=== PATIENT | female | born 1970 | race Caucasian/White ===

== ENCOUNTER 2017-05-28 19:10 | Emergency (ER) | payer OTHER ==
[2017-05-28 19:17] VITALS: TEMP 98.4; O2SAT 98
--- NOTE | 2017-05-28 19:34 | EDPHY ---
H & P Stated Complaint: "DKA", nausea, dizzy, muscle aches Time Seen by Provider: 05/28/17 19:18 HPI/ROS: Chief Complaint: Possible DKA HPI: 47-year-old type 1 diabetic on an insulin pump in usually on a continuous glucose monitor is presenting with persistently high blood sugars today and is concerned that she might be in DKA. Patient states that she woke up this morning with a blood sugar of about 500. She has been attempting to give herself correction doses during the course of the day but her blood sugars have not been coming down. She did change her infusion set approximately 2 hr ago. She gave herself a repeat correction at that time. Blood sugar dropped from 508 2 455 from 6-630. Last time she checked her blood sugar was 1 hr ago. She has had some mild nausea and body aches. No vomiting. No fevers or chills. No cough. She did not notice any significant abnormalities with her infusion set including kinks or air bubbles. She did state that this had is relatively new as she put it in approximately 30 hr ago. She has been on the insulin pump for the last 7 years and was diagnosed with type 1 diabetes in 2000. Last A1c was 6.7. ROS: 10 point Review of Systems is negative except as noted in the HPI. PMH: Type 1 diabetes Social History: No smoking, no alcohol, no recreational drug use Family History: non-contributory Physical Exam: Gen: Awake, Alert, No Distress HEENT: Nose: no rhinorrhea Eyes: PERRLA, EOMI Mouth: Moist mucosa Neck: Supple, no JVD Chest: nontender, lungs clear to auscultation Heart: S1, S2 normal, no murmur Abd: Soft, non-tender, no guarding, patient has a insulin infusion site in her right abdomen that. There is no erythema or tenderness. Back: no CVA tenderness, no midline tenderness Ext: no edema, non-tender Skin: no rash Neuro: CN II-XII intact, Sensation grossly intact, Strength 5/5 in bilateral upper and lower extremities - Personal History LMP (Females 10-55): Now Current Tetanus/Diphtheria Vaccine: Yes Current Tetanus Diphtheria and Acellular Pertussis (TDAP): Yes - Medical/Surgical History Hx Asthma: No Hx Chronic Respiratory Disease: No Hx Diabetes: Yes Hx Cardiac Disease: No Hx Renal Disease: No Hx Cirrhosis: No Hx Alcoholism: No Hx HIV/AIDS: No Hx Splenectomy or Spleen Trauma: No Other PMH: "guilet-barre disease" - Social History Smoking Status: Never smoked Constitutional: Initial Vital Signs Temperature (C) 36.9 C 05/28/17 19:13 Heart Rate 120 H 05/28/17 19:13 Respiratory Rate 20 05/28/17 19:13 Blood Pressure 151/94 H 05/28/17 19:13 O2 Sat (%) 98 05/28/17 19:13 O2 Delivery Mode Room Air Allergies/Adverse Reactions: No Known Allergies Allergy (Unverified 05/28/17 19:17) Home Medications: Medication Instructions Recorded Metformin HCl [Fortamet 1000 mg] 05/28/17 Medical Decision Making ED Course/Re-evaluation: 47-year-old hyperglycemia secondary to likely failure from the infusion site of her insulin pump. She has a very mild acidosis here. Will give her a L of fluid and reassess. She is not like she is in fluid DKA at this time. Repeat blood sugar here is 300. Will reassess after hydration. Acidosis has resolved. Bicarb is now 18. Patient's tolerating fluid improved. Will discharge with follow-up with her ingredient mixer. - Data Points Laboratory Results: Laboratory Results 05/28/17 19:40 05/28/17 19:40 05/28/17 05/28/17 05/28/17 20:35 19:52 19:40 WBC 11.26 10^3/uL H 10^3/uL (3.80-9.50) RBC 4.68 10^6/uL 10^6/uL (4.18-5.33) Hgb 15.0 g/dL g/dL (12.6-16.3) POC Hgb Hct 42.1 % % (38.0-47.0) POC Hct MCV 90.0 fL fL (81.5-99.8) MCH 32.1 pg pg (27.9-34.1) MCHC 35.6 g/dL g/dL (32.4-36.7) RDW 12.5 % % (11.5-15.2) Plt Count 290 10^3/uL 10^3/uL (150-400) MPV 10.6 fL fL (8.7-11.7) Neut % (Auto) 83.2 % H % (39.3-74.2) Lymph % (Auto) 9.8 % L % (15.0-45.0) [place] % (Auto) 5.7 % % (4.5-13.0) Eos % (Auto) 0.1 % L % (0.6-7.6) Baso % (Auto) 0.7 % % (0.3-1.7) Nucleat RBC Rel Count 0.0 % % (0.0-0.2) Absolute Neuts (auto) 9.37 10^3/uL H 10^3/uL (1.70-6.50) Absolute Lymphs (auto) 1.10 10^3/uL 10^3/uL (1.00-3.00) Absolute Monos (auto) 0.64 10^3/uL 10^3/uL (0.30-0.80) Absolute Eos (auto) 0.01 10^3/uL L 10^3/uL (0.03-0.40) Absolute Basos (auto) 0.08 10^3/uL 10^3/uL (0.02-0.10) Absolute Nucleated RBC 0.00 10^3/uL 10^3/uL (0-0.01) Immature Gran % 0.5 % % (0.0-1.1) Immature Gran # 0.06 10^3/uL 10^3/uL (0.00-0.10) Puncture Site NONE GIVEN NONE GIVEN Patient Temperature 37.0 DEGREES DEGREES 37.0 DEGREES DEGREES VBG pH 7.31 7.29 L (7.31-7.42) (7.31-7.42) VBG HCO3 18 mEQ/L L mEQ/L 16 mEQ/L L mEQ/L (22-26) (22-26) VBG Total CO2 19 mEq/L L mEq/L 17 mEq/L L mEq/L (23-27) (23-27) VBG O2 Saturation 68 % % 69 % % (65-75) (65-75) VBG Base Excess -7.1 mEq/L L mEq/L -9.3 mEq/L L mEq/L (-2.5-2.5) (-2.5-2.5) Mixed VBG pCO2 38 mmHg L mmHg 35 mmHg L mmHg (40-44) (40-44) Mixed VBG pO2 39 mmHg mmHg 41 mmHg H mmHg (35-40) (35-40) POC Sodium Sodium POC Potassium Potassium POC Chloride Chloride Carbon Dioxide Anion Gap POC BUN BUN Creatinine POC Creatinine Estimated GFR Glucose POC Glucose Calcium 05/28/17 05/28/17 19:40 19:31 WBC RBC Hgb POC Hgb 14.6 gm/dL gm/dL (12.6-16.3) Hct POC Hct 43 % % (38-47) MCV MCH MCHC RDW Plt Count MPV Neut % (Auto) Lymph % (Auto) [place] % (Auto) Eos % (Auto) Baso % (Auto) Nucleat RBC Rel Count Absolute Neuts (auto) Absolute Lymphs (auto) Absolute Monos (auto) Absolute Eos (auto) Absolute Basos (auto) Absolute Nucleated RBC Immature Gran % Immature Gran # Puncture Site Patient Temperature VBG pH VBG HCO3 VBG Total CO2 VBG O2 Saturation VBG Base Excess Mixed VBG pCO2 Mixed VBG pO2 POC Sodium 134 mEq/L mEq/L (134-144) Sodium 132 mEq/L L mEq/L (134-144) POC Potassium 3.8 mEq/L mEq/L (3.3-5.0) Potassium 4.0 mEq/L mEq/L (3.5-5.2) POC Chloride 98 mEq/L mEq/L (97-110) Chloride 96 mEq/L L mEq/L (97-110) Carbon Dioxide 16 mEq/l L mEq/l (22-31) Anion Gap 20 mEq/L H mEq/L (8-16) POC BUN 18 mg/dL mg/dL (7-23) BUN 17 mg/dL mg/dL (7-23) Creatinine 0.8 mg/dL mg/dL (0.6-1.0) POC Creatinine 0.8 mg/dL mg/dL (0.6-1.0) Estimated GFR > 60 Glucose 290 mg/dL H mg/dL (70-100) POC Glucose 302 mg/dL H mg/dL (70-100) Calcium 9.5 mg/dL mg/dL (8.5-10.4) Medications Given: Discontinued Medications Sodium Chloride (Ns) 1,000 mls @ 0 mls/hr IV ONCE ONE; As Directed PRN Reason: Protocol Stop: 05/28/17 20:17 Last Admin: 05/28/17 20:22 Dose: 1,000 mls Point of Care Test Results: 05/28/17 19:31 POC Sodium 134 POC Potassium 3.8 POC Chloride 98 POC BUN 18 POC Creatinine 0.8 POC Glucose 302 H Departure - Departure Disposition: Home, Routine, Self-Care Clinical Impression: Hyperglycemia, DKA (diabetic ketoacidoses) Condition: Good Instructions: Diabetic Hyperglycemia (ED) Additional Instructions: Follow up with her ingredient mixer in 5-6 days for further evaluation. Return emergency department for uncontrolled blood sugars, nausea, vomiting, fevers, chills, or any other concerns. Referrals: NONE *PRIMARY CARE P,. [Unknown] - As per Instructions
[2017-05-28 19:47] LABS: PLATELET COUNT 290 10^3/uL (150-400)
[2017-05-28] MEDS ORDERED: NS 1,000 ML IV ONE (20:16)
[2017-05-28 21:53] VITALS: BP 131/85; PULSE 93; RESP 16
== END 2017-05-28 22:22 | disposition home or self-care (01) ==
DX: E10.10 Type 1 diabetes mellitus with ketoacidosis without coma (principal); E86.9 Volume depletion, unspecified
CPT/HCPCS: 82947-QW

== ENCOUNTER → 2017-06-24 | Outpatient (CLI) | payer OTHER | LOC: CIMAGING 13:38 | PROVIDERS: ATTEND Internal Medicine Endocrinology, Diabetes & Metabolism | DX: Z12.31 Encounter for screening mammogram for malignant neoplasm of breast (principal) ==

== ENCOUNTER → 2018-06-25 | Outpatient (CLI) | payer OTHER | LOC: CIMAGING 12:20 | PROVIDERS: ATTEND Internal Medicine Endocrinology, Diabetes & Metabolism | DX: Z12.31 Encounter for screening mammogram for malignant neoplasm of breast (principal) ==

== ENCOUNTER → 2018-09-29 | Outpatient (CLI) | payer OTHER | LOC: FIMAGING 13:19 | PROVIDERS: ATTEND Family Medicine | DX: R30.0 Dysuria (principal); R10.9 Unspecified abdominal pain; R82.90 Unspecified abnormal findings in urine; Z87.898 Personal history of other specified conditions ==

== ENCOUNTER 2018-10-12 13:45 | Observation (INO) | payer OTHER ==
[2018-10-12] MEDS ORDERED: NS 500 ML IV ONE (13:53)
[2018-10-12] MEDS ORDERED: ONDANSETRON 4 MG/2 ML VIAL IVP ONE (13:53)
--- NOTE | 2018-10-12 14:17 | EDPHY ---
H & P Smoking Status: Never smoked Time Seen by Provider: 10/12/18 13:53 HPI/ROS: HPI Abdominal pain. 48-year-old female by private vehicle. 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 She presents to the emergency department with complaint of right-sided mid to lower abdominal pain which she describes as aching and cramping since 1-2 a.m. This morning. She reports that she has had several bowel movements since this time with no relief. She describes normal stool. No bloody or melenic stool and no diarrhea. She has also been passing gas without relief. Her last meal was at 9:00 a.m. and this was some cereal. Prior abdominal surgical history includes cholecystectomy. She also recently finished a course of Keflex for treatment of urinary tract infection. Last menstrual. Was at the end of August. She has had nausea but no vomiting. ROS: Constitutional: No fever, no chills. No weakness. Eyes: No discharge. No changes in vision. ENT: No sore throat. No nasal congestion or rhinorrhea. Respiratory: No cough. No shortness of breath. Cardiac: No chest pain, no palpitations. Gastrointestinal: As above, no vomiting, no diarrhea. Genitourinary: No hematuria. No dysuria or increased frequency with urination. Musculoskeletal: No back pain. No neck pain. No myalgias or arthralgias. Skin: No rashes. Neurological: No headache. No focal weakness or altered sensation. Past medical history: As above, Guillian Aledo syndrome, type 1 diabetes, cholecystectomy, C-sections, urinary tract infections. Her primary care physician is Dr. Encarnacion. 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 Physical Exam: General Appearance: Alert, no distress. This patient is responding to questions appropriately and in full sentences. This patient appears well- hydrated and well-nourished. Eyes: Pupils equal and round no pallor or injection. No lid edema, erythema or injection. Respiratory: There are no retractions, lungs are clear to auscultation with good air movement bilaterally. Cardiovascular: Regular rate and rhythm. No murmur. Gastrointestinal: With mild and vague right lower quadrant and right mid lateral abdominal tenderness on palpation, no masses, bowel sounds normal. No focal tenderness at McBurney's point. No Patel sign. Neurological: Motor sensory function is grossly intact. Cranial nerves are normal. Gait is normal. Skin: Warm and dry, no rashes. Musculoskeletal: Neck is supple and nontender. Extremities are symmetrical. All joints range without pain or impingement. Psychiatric: No agitation. No depression. Database: EKG: Imaging: CT abdomen and pelvis with IV contrast: Procedures: Emergency department course: Triage vital signs reviewed. She is mildly hypertensive. Vital signs are otherwise normal. She is afebrile. IV was placed. She was started on IV normal saline with 500 cc to be given over the next hour. She will be given 4 mg of IV Zofran for nausea. She declines pain medication at this time. CT imaging will be obtained to evaluate for appendicitis. Patient endorses workup. 3:00 p.m., blood work and urinalysis reviewed, patient's care turned over to Dr. Ronnell Rodríguez. CT abdomen and pelvis pending. Differential Diagnosis: The differential diagnosis on this patient includes but is not limited to appendicitis, ureterolithiasis. Ectopic , bowel obstruction/volvulus, cholecystitis, pyelonephritis unlikely. This represents a partial list of diagnoses considered. These considerations are based on history, physical exam , past history, reassessment and diagnostic testing. (Suresh Patton) Constitutional: Initial Vital Signs Temperature (C) 37.0 C 10/12/18 13:52 Heart Rate 90 10/12/18 13:52 Respiratory Rate 18 10/12/18 13:52 Blood Pressure 155/106 H 10/12/18 13:52 O2 Sat (%) 98 10/12/18 13:52 O2 Delivery Mode Room Air Allergies/Adverse Reactions: lisinopril Allergy (Verified 10/12/18 18:56) Home Medications: Medication Instructions Recorded Insulin Aspart [novoLOG] 0 unit SC AD 10/12/18 Insulin Pump, Patient Own 1 ea MISC AD 10/12/18 Insulin Regular, Human [Afrezza] 8 unit IH PRN PRN 10/12/18 Simvastatin [Zocor] 20 mg PO HS 10/12/18 metFORMIN HCL [Metformin HCl ER] 1,000 mg PO BID 10/12/18 oxyCODONE/APAP 5/325 [Percocet 1 - 2 tab PO Q4 PRN #20 tab 10/13/18 5/325 (*)] Medical Decision Making ED Course/Re-evaluation: 1538: CT scan abdomen pelvis with IV contrast called to me by Dr. Jimi Pat. This reveals acute appendicitis. The appendix is deep in the pelvis measuring 10 mm with periappendiceal inflammation. No abscess no perforation. At this time I did update the patient about her diagnosis of acute appendicitis she will need to be transferred to [facility] to meet with surgery for appendectomy. She agrees for this plan. I have ordered her IV Rocephin IV Flagyl. Additionally I have ordered her 1 L of normal saline. Will speak with surgery for acute appendicitis. She is an IDDM, and has an Insulin pump. 1605: Dr. Brandon consulted for Acute appy. Plan for transfer to , patient to check in and go to preop Patient would like to drive over. Will allow her to drive with IV inplace, she understands to go directly there, do not eat anything. Do not go home. Go directly to hospital, pre-op. Dr. Brandon to see her. (Ronnell Rodríguez) - Data Points Medications Given: Discontinued Medications Bupivacaine HCl (Sensorcaine 0.5% Vial) Confirm Administered Dose 30 ml .ROUTE .STK-MED ONE Stop: 10/12/18 18:19 Last Admin: 10/12/18 19:56 Dose: 20 ml Fentanyl (Sublimaze) 25 - 100 mcg IVP Q5M PRN PRN Reason: PACU, IMMEDIATE Pain control Stop: 10/12/18 21:20 Last Admin: 10/12/18 20:45 Dose: 50 mcg Sodium Chloride (Ns) 500 mls @ 0 mls/hr IV EDNOW ONE; Wide Open PRN Reason: Protocol Stop: 10/12/18 13:54 Last Admin: 10/12/18 14:20 Dose: 500 mls Ceftriaxone Sodium/Dextrose (Rocephin 1 Gm (Premix)) 50 mls @ 100 mls/hr IV EDNOW ONE PRN Reason: Protocol Stop: 10/12/18 16:04 Last Admin: 10/12/18 15:45 Dose: 50 mls Metronidazole/Sodium Chloride (Flagyl 500 Mg (Premix)) 100 mls @ 100 mls/hr IV EDNOW ONE PRN Reason: Protocol Stop: 10/12/18 16:34 Last Admin: 10/12/18 16:28 Dose: 100 mls Sodium Chloride (Ns) 1,000 mls @ 0 mls/hr IV ONCE ONE PRN Reason: Wide Open Stop: 10/12/18 15:36 Last Admin: 10/12/18 15:45 Dose: 1,000 mls Ceftriaxone Sodium/Dextrose (Rocephin 1 Gm (Premix)) 50 mls @ 100 mls/hr IV DAILY RAULITO PRN Reason: Protocol Stop: 11/12/18 08:59 Last Admin: 10/13/18 09:31 Dose: 50 mls Potassium Chloride/Dextrose/Sod Cl (D5w 1/2 Ns W/ 20 Kcl/L) 1,000 mls @ 75 mls/ hr IV CONT RAULITO Stop: 04/10/19 18:59 Last Admin: 10/12/18 22:11 Dose: 1,000 mls Insulin Human Regular (Humulin R) 2 - 10 unit SC ACHS RAULITO PRN Reason: Protocol Stop: 04/10/19 22:29 Last Admin: 10/13/18 08:38 Dose: 2 units Ketorolac Tromethamine (Toradol) 15 mg IVP Q6HRS RAULITO Stop: 10/18/18 00:00 Last Admin: 10/13/18 05:42 Dose: 15 mg Midazolam HCl (Versed) 2 mg IVP ONCALL ONE Stop: 10/12/18 19:13 Last Admin: 10/12/18 19:37 Dose: 2 mg Ondansetron HCl (Zofran) 4 mg IVP EDNOW ONE Stop: 10/12/18 13:54 Last Admin: 10/12/18 14:20 Dose: 4 mg Oxycodone/Acetaminophen (Percocet 5/325) 1 - 2 tab PO Q4 PRN PRN Reason: Pain, Severe Able to Take PO Stop: 10/22/18 18:48 Last Admin: 10/12/18 21:05 Dose: 1 tab Point of Care Test Results: CBC CBC Collection Date 10/12/18 CBC Collection Time 14:16 WBC 11.51 RBC 4.45 HGB 14.1 HCT 40.2 PLT 224 Neut # 9.96 Neut 86.6 LYMPH # 0.88 LYMPH 7.6 MCV 90.3 Chemistry 10/12/18 14:18 POC Sodium 140 mEq/L mEq/L (135-145) POC Potassium 4.1 mEq/L mEq/L (3.3-5.0) POC Chloride 104.0 mEq/L mEq/L (97-110) POC Total CO2 29 mEq/L mEq/L (22-31) POC BUN 11 mg/dL mg/dL (7-23) POC Creatinine 0.7 mg/dL mg/dL (0.6-1.0) POC Glucose 197 mg/dL H mg/dL (70-100) POC Calcium 9.6 mg/dL mg/dL (8.5-10.4) POC Total Bilirubin 2.6 mg/dL H mg/dL (0.1-1.4) POC AST 21 IU/L IU/L (14-46) POC ALT 21 IU/L IU/L (9-52) POC Alk Phosphatase 68 IU/L IU/L (38-126) POC Total Protein 7.2 g/dL g/dL (6.3-8.2) POC Albumin 3.8 g/dL g/dL (3.5-5.0) Urine Collection Date 10/12/18 Collection Time 14:45 HCG Results Negative Urine Dip Collection Date 10/12/18 Collection Time 14:46 Specific [place] (1.002-1.030) 1.020 PH (5.0-7.5) 5.5 Leukocytes (Negative) Negative Nitrites (Negative) Negative Protein (Negative) Negative Glucose (Negative) 3+ Ketones (Negative) Negative Urobilnogen (0.2-1.0 EU) 0.2 Bilirubin (Negative) Negative Blood (Negative) Negative Departure - Departure Disposition: [facility] Inpatient Acute Clinical Impression: Acute appendicitis Qualifiers: Acute appendicitis type: with localized peritonitis Appendicitis gangrene presence: without gangrene Appendicitis perforation presence: without perforation Appendicitis abscess presence: without abscess Qualified Code(s): K35.30 - Acute appendicitis with localized peritonitis, without perforation or gangrene
[2018-10-12] MEDS ORDERED: IOPAMIDOL (ISOVUE-300) 100 ML BTL ONE (14:53)
[2018-10-12] MEDS ORDERED: NS 1,000 ML IV ONE (15:35)
--- NOTE | 2018-10-12 18:17 | PDGENHP ---
History & Physical Chief Complaint: abd pain History of Present Illness: female with rlq pain since 1 am. admit for lap appe with + appendicitis on ct, no perforation/ risks and options fully discussed/ wbc 11k Pertinent Past, Social, Family History: psh: alex, c section. pmh: dibetes, htn, guillan- barre. ros - on full 10 pt review. soc hx: works as psych nurse , nonsmoker. all: lisinopril. meds: metformin, insulin Relevant Physical Exam: gen healthy 48 female in NAD, afebrile. heent nonicteric,no adenopathy. chest clear. cor rr. abd: soft with bs, tender rlq with guarding. extrem ok. neuro physiologic and symmetric. psych alert oriented and cooperative Cardiorespiratory Assessment: imp: acute appendicitis. plan: lap appe/ risks and options fully discussed
[2018-10-12] MEDS ORDERED: BUPIVACAINE 0.5% 30 ML SDV ONE (18:18)
[2018-10-12] MEDS ORDERED: ONDANSETRON 4 MG/2 ML VIAL IVP PRN ×2 (18:49→20:20)
[2018-10-12] MEDS ORDERED: HYDROmorphONE/DILAUDID 1 MG/ML INJ IVP PRN ×2 (18:49→20:42)
[2018-10-12] MEDS ORDERED: OXYCODONE/APAP 5/325 TAB PO PRN (18:49)
--- NOTE | 2018-10-12 18:56 | POSTOPPROG ---
Post Op Note Date of Operation: 10/12/18 Surgeon: Power Brandon Anesthesiologist: ITZEL Anesthesia: GET(General Endotracheal) Pre-op Diagnosis: acute appendicitis Post-op Diagnosis: same Indication: pain Procedure: lap appendicitis Findings: acute appendicitis Inf/Abcess present in the surg proc area at time of surgery?: Yes Depth: Organ Space EBL: Minimal Complications: 0 Specimen(s): appendix
[2018-10-12] MEDS ORDERED: D5W 1/2 NS W/ 20 KCl/L 1,000 ML IV SCH (19:00)
[2018-10-12] MEDS ORDERED: MIDAZOLAM 2 MG/2 ML VIAL IVP ONE (19:12)
--- NOTE | 2018-10-12 19:12 | PDANEPAE ---
ANE History of Present Illness Acute appendicitis ANE Past Medical History - Cardiovascular History Hx Hypertension: No Hx Arrhythmias: No Hx Chest Pain: No Hx CHF / Valvular Disease: No - Pulmonary History Hx COPD: No Hx Asthma/Reactive Airway Disease: No Hx Oxygen in Use at Home: No Hx Sleep Apnea: No - Endocrine History Hx Diabetes: Yes ANE Review of Systems Review of Systems: ANE Patient History - Allergies Allergies/Adverse Reactions: lisinopril Allergy (Verified 10/12/18 18:56) - Home Medications Home medications: home medication list seen and reviewed Home Medications: Metformin HCl [Fortamet 1000 mg] 05/28/17 [Last Taken Unknown] Humalog 10/12/18 [Last Taken Unknown] SIMVASTATIN 10/12/18 [Last Taken Unknown] - NPO status NPO Since - Liquids (Date): 10/12/18 NPO Since - Liquids (Time): 09:00 NPO Since - Solids (Date): 10/12/18 NPO Since - Solids (Time): 09:00 - Anes Hx Anes Hx: no prior problems - Smoking Hx Smoking Status: Never smoked ANE Labs/Vital Signs - Vital Signs Blood Pressure: 141/90 Heart Rate: 109 Respiratory Rate: 16 O2 Sat (%): 97 Height: 170.18 cm Weight: 90.718 kg ANE Physical Exam - Airway Neck exam: FROM Mallampati Score: Class 2 Mouth exam: normal dental/mouth exam - Pulmonary Pulmonary: no respiratory distress - Cardiovascular Cardiovascular: regular rate and rhythym - ASA Status ASA Status: II, E ANE Anesthesia Plan Anesthesia Plan: general endotracheal anesthesia
[2018-10-12] MEDS ORDERED: PROPOFOL 200 MG/20 ML VIAL ONE (19:29)
[2018-10-12] MEDS ORDERED: fentaNYL 100 MCG/2 ML INJ ONE ×2 (19:29→20:40)
[2018-10-12] MEDS ORDERED: MIDAZOLAM 2 MG/2 ML VIAL ONE (19:30)
[2018-10-12] MEDS ORDERED: ROCURONIUM 50 MG/5 ML VIAL ONE (19:30)
[2018-10-12] MEDS ORDERED: GLYCOPYRROLATE 0.2 MG/1 ML VIAL ONE (19:30)
[2018-10-12] MEDS ORDERED: NALOXONE HCL 0.4 MG/ML INJ IVP PRN ×2 (20:20→20:42)
[2018-10-12] MEDS ORDERED: fentaNYL 100 MCG/2 ML INJ IVP PRN (20:20)
[2018-10-12] MEDS ORDERED: SUGAMMADEX SODIUM 200 MG/2 ML VIAL IVP ONE (20:28)
--- NOTE | 2018-10-12 20:42 | POSTANESTH ---
Post Anesthetic Evaluation Cardiovascular Status: Similar to Pre-Op Cond Respiratory Status: Similar to Pre-op Cond. Level of Consciousness/Mental Status: Alert and Oriented Pain Control: Adequate, Prn Tx Ordered Nausea/Vomiting Control: Adequate, Prn Tx Ordered Complications Possibly Related to Anesthesia: None Noted
[2018-10-12] MEDS ORDERED: OXYCODONE/APAP 5/325 TAB ONE (21:04)
[2018-10-12] MEDS ORDERED: INSULIN REGULAR HUMAN IH PRN (22:23)
[2018-10-12] MEDS ORDERED: D50W 25 GM/50 ML VIAL IVP PRN (22:30)
[2018-10-12] MEDS ORDERED: INSULIN PUMP MISC SCH (22:30)
[2018-10-12] MEDS: INSULIN REGULAR, HUMAN 100 UNIT/1 ML VIAL STANDARD SC SCH (23:26)
[2018-10-12] MEDS: KETOROLAC 15 MG/1 ML SDV IVP SCH (23:26)
[2018-10-13] MEDS: KETOROLAC 15 MG/1 ML SDV IVP SCH (05:42)
[2018-10-13 07:55] VITALS: BP 111/73
[2018-10-13] MEDS: INSULIN REGULAR, HUMAN 100 UNIT/1 ML VIAL STANDARD SC SCH (08:38)
--- NOTE | 2018-10-13 08:40 | SOAPPROG ---
SOAP Progress Note Assessment/Plan: Assessment/Plan: 48 Y F s/p lap appy for nonperforated acute appendicitis. Doing well. Wounds intact. Pain controlled c toradol. About to order breakfast. D/c to home later today after breakfast. S: pain controlled. no n/v. O: alert, nad no wob abd soft 10/13/18 08:38 Objective: Vital Signs Temp Pulse Resp BP Pulse Ox 36.8 C 94 16 111/73 93 10/13/18 07:54 10/13/18 07:54 10/13/18 07:54 10/13/18 07:54 10/13/18 07:54 10/12/18 10/13/18 10/14/18 05:59 05:59 05:59 Intake Total 2650 Output Total 10 Balance 2640 ICD10 Worksheet Patient Problems: Problems Problem Status Onset Abdominal pain Acute Acute appendicitis Acute
[2018-10-13] MEDS ORDERED: ATORVASTATIN CALCIUM 10 MG TAB PO SCH (21:00)
[2018-10-15] MEDS ORDERED: metFORMIN SR 500 MG TAB PO SCH (09:00)
== END 2018-10-13 11:06 | disposition home or self-care (01) ==
LOC: CED 13:45 → CEDHOLD 16:06 → INTOOBSV 16:06 → F3E 21:15
PROVIDERS: ADMIT Surgery; ATTEND Surgery
PROC: 0DTJ8ZZ Resection of Appendix, Via Natural or Artificial Opening Endoscopic (ICD-10-PCS; principal; 2018-10-12 19:00)
DX: K35.80 Unspecified acute appendicitis (principal); E10.9 Type 1 diabetes mellitus without complications; E86.9 Volume depletion, unspecified
CPT/HCPCS: 44970; 74177; 96361; 96372; 96374; 96375; 96376; 99285; G0378; 80053-ER; 81025-ER; 85025-QW-ER; J0696; J1815; J1885; J2250; J2405; J2704; J3010; Q9967